=== PATIENT | female | born 1945 | race Native Hawaiian/Other Pacific Islander ===

== ENCOUNTER 2021-09-23 10:49 | Emergency (ER) | payer OTHER ==
[~2021-09-23] VITALS: Ht 157.5 cm; Wt 99.8 kg
[2021-09-23 12:43] LABS: PLATELET COUNT 270 K/uL (152-353)
[2021-09-23 13:05] LABS: POTASSIUM 3.6 mmol/L (3.6-5.2)
[2021-09-23 13:46] VITALS: BP 175/84; TEMP 98.2
== END 2021-09-23 13:49 | disposition home or self-care (01) ==
LOC: ED 10:49
PROVIDERS: Emergency Medicine Emergency Medical Services
DX: N13.2 Hydronephrosis with renal and ureteral calculous obstruction (principal)
CPT/HCPCS: 80048; 81000; 85027; 96365; 96375; 99284; J1885